=== PATIENT | female | born 1995 | race Caucasian/White ===

== ENCOUNTER 2016-09-13 06:25 | Day surgery (SDC) | payer BC, OTHER ==
[~2016-09-13 06:25] MED LIST: Lactated Ringers 1,000 ML IV SCH; Lidocaine 1%/Sod Bicarbonate in NS 8.4% 1 ML Syringe IV PRN; Sodium Chloride 0.9% 10 ML Syringe FLUSH PRN
[2016-09-13] MEDS ORDERED: Bupivacaine 0.5% 30 ML SDV ONE (06:33)
--- NOTE | 2016-09-13 07:14 | PCM.PREANE ---
Preanesthetic Assessment - Anesthesia/Transfusion/Family Hx Anesthesia History: No Prior Anesthesia (per patient) Family History of Anesthesia Reaction: No Transfusion History: No Prior Transfusion(s) - Review of Systems General: No Symptoms Pulmonary: No Symptoms Cardiovascular: No Symptoms Gastrointestinal: No symptoms Neurological: No Symptoms Other: Reports: Thyroid Problems - Physical Assessment NPO Status Date: 09/12/16 NPO Status Time: 22:30 Pulse: 81 O2 Sat by Pulse Oximetry: 98 Respiratory Rate: 16 Blood Pressure: 113/60 Temperature: 36.4 C Vital Signs: Last Vital Signs Temp 36.4 C 09/13/16 06:35 Pulse 81 09/13/16 06:35 Resp 16 09/13/16 06:35 BP 113/60 09/13/16 06:35 Pulse Ox 98 09/13/16 06:35 Height: 1.55 m Weight: 53.07 kg ASA Class: 2 Mental Status: Alert & Oriented x3 Airway Class: Mallampati = 1 Dentition: Reports: Normal Dentition Thyro-Mental Finger Breadths: 3 Mouth Opening Finger Breadths: 3 ROM/Head Extension: Full Lungs: Clear to auscultation, Normal respiratory effort Cardiovascular: Regular Rate, Regular Rhythm, No Murmurs - Lab Values: Laboratory Last Values WBC 6.63 K/mm3 (3.98-10.04) 09/11/16 15:45 RBC 4.79 M/mm3 (3.98-5.22) 09/11/16 15:45 Hgb 13.9 gm/L (11.2-15.7) 09/11/16 15:45 Hct 41.1 % (34.1-44.9) 09/11/16 15:45 MCV 85.8 fl (79.4-94.8) 09/11/16 15:45 MCH 29.0 pg (25.6-32.2) 09/11/16 15:45 MCHC 33.8 g/dl (32.2-35.5) 09/11/16 15:45 RDW Std Deviation 40.7 fL (36.4-46.3) 09/11/16 15:45 Plt Count 170 K/mm3 (182-369) L 09/11/16 15:45 MPV 11.8 fl (9.4-12.3) 09/11/16 15:45 Neut % (Auto) 62.1 % (34.0-71.1) 09/11/16 15:45 Lymph % (Auto) 25.3 % (19.3-51.7) 09/11/16 15:45 [place] % (Auto) 6.2 % (4.7-12.5) 09/11/16 15:45 Eos % (Auto) 5.6 (0.7-5.8) 09/11/16 15:45 Baso % (Auto) 0.6 % (0.1-1.2) 09/11/16 15:45 Neut # (Auto) 4.12 K/mm3 (1.56-6.13) 09/11/16 15:45 Lymph # (Auto) 1.68 K/mm3 (1.18-3.74) 09/11/16 15:45 [place] # (Auto) 0.41 K/mm3 (0.24-0.36) H 09/11/16 15:45 Eos # (Auto) 0.37 K/mm3 (0.04-0.36) H 09/11/16 15:45 Baso # (Auto) 0.04 K/mm3 (0.01-0.08) 09/11/16 15:45 Urine Color Yellow (Yellow) 09/11/16 15:45 Urine Appearance Clear (Clear) 09/11/16 15:45 Urine pH 7.0 (5.0-8.0) 09/11/16 15:45 Ur Specific [place] 1.020 (1.005-1.030) 09/11/16 15:45 Urine Protein Trace (Negative) H 09/11/16 15:45 Urine Glucose (UA) Negative (Negative) 09/11/16 15:45 Urine Ketones Negative (Negative) 09/11/16 15:45 Urine Occult Blood Negative (Negative) 09/11/16 15:45 Urine Nitrite Negative (Negative) 09/11/16 15:45 Urine Bilirubin Negative (Negative) 09/11/16 15:45 Urine Urobilinogen 1.0 (0.2-1.0) 09/11/16 15:45 Ur Leukocyte Esterase Negative (Negative) 09/11/16 15:45 Urine HCG, Qual Negative (NEGATIVE) 09/13/16 06:30 - Allergies Allergies/Adverse Reactions: Allergies Allergy/AdvReac Type Severity Reaction Status Date / Time peach Allergy Hives Verified 09/12/16 15:05 - Anesthesia Plan Pre-Op Medication Ordered: None - Acknowledgements Anesthesia Type Planned: General Anesthesia Pt an Appropriate Candidate for the Planned Anesthesia: Yes Alternatives and Risks of Anesthesia Discussed w Pt/Guardian: Yes Pt/Guardian Understands and Agrees with Anesthesia Plan: Yes PreAnesthesia Questionnaire - Past Health History Medical/Surgical History: Denies Medical/Surgical History HEENT History: Reports: Impaired Vision, Other (See Below) Other HEENT History: wears glasses Cardiovascular History: Reports: None Respiratory History: Reports: None Gastrointestinal History: Reports: None Genitourinary History: Reports: STD, Other (See Below) Other Genitourinary History: chlamydia, pelvic pain, dysmenorrhea, bacterial vaginosis, heavy menses 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 (See Below) Other OB/BYN History: elective Musculoskeletal History: Reports: None Neurological History: Reports: None Psychiatric History: Reports: None Endocrine/Metabolic History: Reports: Hypothyroidism, Vitamin D Deficiency, Other (See Below) Other Endocrine/Metabolic History: thyromegaly Hematologic History: Reports: None Immunologic History: Reports: None Oncologic (Cancer) History: Reports: None Dermatologic History: Reports: None - Past Surgical History Head Surgeries/Procedures: Reports: None Female Surgical History: Reports: D&C - SUBSTANCE USE Smoking Status *Q: Never Smoker Second Hand Smoke Exposure: No Days Per Week of Alcohol Use: 0 Recreational Drug Use History: No - HOME MEDS Home Medications: Home Meds Cholecalciferol (Vitamin D3) [Vitamin D3] 50,000 unit PO MO 09/12/16 [History] Levothyroxine [Synthroid] 88 mcg PO DAILY 09/12/16 [History] - CURRENT (IN HOUSE) MEDS Current Meds: Current Medications Lactated Ringer's (Ringers, Lactated) 1,000 mls @ 125 mls/hr IV ASDIRECTED [facility] Last Admin: 09/13/16 06:50 Dose: 125 mls/hr Lidocaine/Sodium Bicarbonate (Buffered Lidocaine 1% In Ns 8.4%) 0.25 ml IV ONETIME PRN PRN Reason: Prior to IV Start Last Admin: 09/13/16 06:50 Dose: 0.25 ml Sodium Chloride (Saline Flush) 10 ml FLUSH ASDIRECTED PRN PRN Reason: Keep Vein Open Discontinued Medications Bupivacaine HCl (Marcaine 0.5%) Confirm Administered Dose 30 ml .ROUTE .allGreenup-MED ONE Stop: 09/13/16 06:34
[2016-09-13] MEDS ORDERED: Scopolamine 1.5 MG Transdermal Patch TOP ONE (07:30)
[2016-09-13] MEDS ORDERED: Rocuronium 50 MG/5 ML Vial ONE (07:33)
[2016-09-13] MEDS ORDERED: Ondansetron 4 MG/2 ML SDV ONE (07:33)
[2016-09-13] MEDS ORDERED: Propofol 200 MG/20 ML SDV ONE (07:33)
[2016-09-13] MEDS ORDERED: Lidocaine 1% 4 ML ONE (07:34)
[2016-09-13] MEDS ORDERED: Midazolam 1 MG/ML 2 ML SDV ONE (07:34)
[2016-09-13] MEDS ORDERED: fentaNYL 250 MCG/5 ML SDV ONE (07:34)
[2016-09-13] MEDS ORDERED: ceFAZolin 1 GM Vial ONE (07:38)
[2016-09-13] MEDS ORDERED: Dexamethasone 4 MG/ML 5 ML MDV ONE (07:52)
[2016-09-13] MEDS ORDERED: diphenhydrAMINE 50 MG/ML SDV ONE (07:52)
[2016-09-13] MEDS ORDERED: Ondansetron 4 MG/2 ML SDV IVPUSH PRN (08:18)
[2016-09-13] MEDS ORDERED: Acetaminophen/oxyCODONE 325-5 MG Tab PO PRN (08:18)
[2016-09-13] MEDS ORDERED: Neostigmine Methylsulfate 1 MG/ML 5 ML Syringe ONE (08:20)
--- NOTE | 2016-09-13 08:25 | PCM.OPNOTE ---
- General Post-Op/Procedure Note Date of Surgery/Procedure: 09/13/16 Operative Procedure(s): Laparoscopy, biopsy and cautery of posterior cul-de-sac lesion Findings: Patient had mulberry spots right posterior cul-de-sac. Possibly consistent with endometriosis. These are biopsied and cauterized with unipolar cautery. Uterus tubes and ovaries otherwise unremarkable. Anterior and posterior cul-de-sac otherwise unremarkable. The appendix appeared noninflamed. Liver edge-right and left lobe unremarkable. Pre Op Diagnosis: 1. Chronic pelvic pain. 2. Dysmenorrhea. 3. Menorrhagia Post-Op Diagnosis: Same was suspected mild endometriosisstage I Anesthesia Technique: General ET tube Other Anesthesia Type: Marcaine 0.5% 3 mL at each port site Primary Surgeon: Brown Mahajan Secondary Surgeon: Román Hutchins Anesthesia Provider: Vicente Quinonez Pathology: Biopsy right posterior cul-de-sac Fluid Replacement, Intraop: 1,000 (Crystalloid) Output, Urine Amount: 100 EBL in mLs: 3 Drain/Tube Comments:: Indwelling bladder catheter during procedure only Condition: Good Free Text/Narrative:: Surgery duration: 20 minutes Palpitations: None Specimens: Biopsy right posterior cul-de-sac Procedure: The patient was taken to the operating room and placed in supine position on the operative table. She had sequential compression stockings in place for DVT prophylaxis and had been given 2 g of Ancef IV for infection prophylaxis. She was administered general endotracheal anesthesia. After administration of anesthesia the patient was placed in dorsal lithotomy position and prepped and draped in usual fashion. An indwelling bladder catheter was placed as was a uterine manipulator. It should be noted the uterus sounded to 8 cm and was noted to be anterior and mid position. Infraumbilical incision site and suprapubic site were then infiltrated with approximately 3-4 mL of Marcaine 0.5%. 5 mm incisions were made in these areas. Varies needle was placed in the infraumbilical incision site and pneumoperitoneum was established was in 2 L of CO2. The laparoscopic sleeve was then placed as was the scope. Under direct visualization the suprapubic site was developed with a 5 mm port. Pelvis was evaluated findings as above. Right posterior cul-de-sac and some small mulberry colored lesions present these were biopsied and then cauterized with unipolar cautery. Anatomy otherwise was unremarkable. After biopsy and cauterization was performed the pneumoperitoneum was reversed. The lower sleeve having been removed under direct visualization. The upper port was removed and the incisions were closed with single subcuticular interrupted suture of 3-0 Monocryl. The incisions were further approximated with Dermabond skin glue. The uterine manipulator and Dee catheter removed. Patient was returned to the supine position and awakened from general endotracheal anesthesia. She left the operating room in good condition.
[2016-09-13] MEDS ORDERED: Lactated Ringers 1,000 ML ONE (08:26)
[2016-09-13] MEDS ORDERED: Ketorolac 30 MG/ML SDV IVPUSH SCH (08:30)
[2016-09-13] MEDS ORDERED: Ketorolac 30 MG/ML SDV IVPUSH PRN (08:30)
--- NOTE | 2016-09-13 08:32 | PCM.POSTAN ---
POST ANESTHESIA ASSESSMENT - MENTAL STATUS Mental Status: somnolent - VITAL SIGNS Pulse Rate: 87 SaO2: 99 Resp Rate: 10 Blood Pressure: 108/65 Temperature: 37.0 C - RESPIRATORY Respiratory Status: respiratory rate WNL, airway patent, O2 saturation stable, supplemental oxygen - CARDIOVASCULAR CV Status: pulse rate WNL, blood pressure stable - GASTROINTESTINAL GI Status: no symptoms - PAIN Pain Score: 0 - POST OP HYDRATION Hydration Status: adequate & stable - OBSERVATIONS Free Text/Narrative:: no anesthesia complications noted
[2016-09-13] MEDS ORDERED: fentaNYL 100 MCG/2 ML SDV IVPUSH PRN (09:00)
[2016-09-13 11:18] VITALS: BP 122/68
== END 2016-09-13 11:30 | disposition home or self-care (01) ==
LOC: JD.SDS 06:25
PROVIDERS: ATTEND Obstetrics & Gynecology
DX: N94.89 Other specified conditions associated with female genital organs and menstrual cycle (principal); E03.9 Hypothyroidism, unspecified; E55.9 Vitamin D deficiency, unspecified; Z86.19 Personal history of other infectious and parasitic diseases; Z91.018 Allergy to other foods; Z91.09 Other allergy status, other than to drugs and biological substances; Z98.890 Other specified postprocedural states; Z79.899 Other long term (current) drug therapy
CPT/HCPCS: 36415; 49321; 81003; 81025; 85025; 88305; A9270; J0690; J1100; J1200; J1885; J2250; J2405; J2710; J3010; J7120; 00840; J2704

== ENCOUNTER 2017-05-24 11:37 | Emergency (ER) | payer OTHER ==
[2017-05-24 11:55] VITALS: BP 110/78
--- NOTE | 2017-05-24 12:34 | EDM.PDOC ---
<Nicholas Saucedo - Last Filed: 05/24/17 17:16> ED HPI GENERAL MEDICAL PROBLEM - General Chief Complaint: Lower Extremity Injury/Pain Stated Complaint: LT KNEE INJURY Time Seen by Provider: 05/24/17 12:04 - Related Data Allergies Allergy/AdvReac Type Severity Reaction Status Date / Time peach Allergy Hives Verified 09/12/16 15:05 Home Meds: Home Meds Cholecalciferol (Vitamin D3) [Vitamin D3] 50,000 unit PO MO 09/12/16 [History] Levothyroxine [Synthroid] 88 mcg PO DAILY 09/12/16 [History] Meloxicam 7.5 mg PO DAILY #20 tablet 05/24/17 [Rx] Review of Systems - Review of Systems Review Of Systems: See Below ED EXAM, GENERAL - Physical Exam Exam: See Below Course - Vital Signs Last Recorded V/S: Last Vital Signs Temp 37.2 C 05/24/17 11:52 Pulse 74 05/24/17 11:52 Resp 18 05/24/17 11:52 BP 110/78 05/24/17 11:52 Pulse Ox 100 05/24/17 11:52 - Re-Assessments/Exams Free Text/Narrative Re-Assessment/Exam: 05/24/17 14:19. Patient has stated that she needs a physician evaluation and agreement with treatment plan to obtain insurance coverage. I have visited with patient regarding her symptoms and findings today. I totally agree with history , evaluation, and discharge treatment plan as documented as DrRadha documented by Shantel PARK. Departure - Departure Disposition: Home, Self-Care 01 Clinical Impression: Knee pain, left - Discharge Information Prescriptions: Meloxicam 7.5 mg PO DAILY #20 tablet Instructions: Knee Pain, Adult Referrals: PCP,None [Primary Care Provider] - Forms: ED Department Discharge Additional Instructions: Meloxicam 1 tab daily. Use the crutches as tolerated. An outpatient order is in place read as physical therapy. Recommend [facility]. call [phone] to schedule with a provider there Follow-up with orthopedics if your symptoms have not improved much. Recommend Dr. Calvert. Call [phone] to schedule with him. Please return to the ER if your symptoms change or worsen. <Shantel Melo - Last Filed: 05/24/17 17:57> ED HPI GENERAL MEDICAL PROBLEM - General Source of Information: Reports: Patient History Limitations: Reports: No Limitations - History of Present Illness INITIAL COMMENTS - FREE TEXT/NARRATIVE: 22-year-old female presents for evaluation and treatment of left knee pain. 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 She is walking 6-10 miles per day. She states that since starting as a pit worker power shovel she has slowly developed left knee pain. Continues to the point where she cannot bear weight due to significant pain. With weight bearing pain is a 10 out of 10. At rest and with passive range of motion she is not expressing pain. No known trauma to the knee. No swelling, erythema, numbness or tingling to the leg. No pain to the hip or the ankle. No previous trauma to the knee. Denies any right knee pain. 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 (See Below) Other OB/BYN History: elective Musculoskeletal History: Reports: None Neurological History: Reports: None Psychiatric History: Reports: None Endocrine/Metabolic History: Reports: Hypothyroidism, Vitamin D Deficiency, Other (See Below) Other Endocrine/Metabolic History: thyromegaly Hematologic History: Reports: None Immunologic History: Reports: None Oncologic (Cancer) History: Reports: None Dermatologic History: Reports: None - Past Surgical History Female Surgical History: Reports: D&C Social & Family History - Tobacco Use Smoking Status *Q: Never Smoker Second Hand Smoke Exposure: No - Caffeine Use Caffeine Use: Reports: None - Alcohol Use Days Per Week of Alcohol Use: 0 - Recreational Drug Use Recreational Drug Use: No Review of Systems - Review of Systems Review Of Systems: See Below Musculoskeletal: Reports: Joint Pain (left ). Denies: Joint Swelling Skin: Denies: Erythema Neurological: Reports: Difficulty Walking. Denies: Numbness, Tingling ED EXAM, GENERAL - Physical Exam Exam: See Below Exam Limited By: No Limitations General Appearance: Alert, WD/WN, No Apparent Distress Respiratory/Chest: No Respiratory Distress Cardiovascular: Normal Peripheral Pulses Peripheral Pulses: 2+: Posterior Tibial (L), Posterior Tibial (R), Dorsalis Pedis (L), Dorsalis Pedis (R) Extremities: Normal Inspection, Normal Range of Motion, Non-Tender, Normal Capillary Refill, Other (Negative anterior drawer, posterior drawer. No pain with valgus or varus stress testing. No tenderness to palpation of the knee. No joint effusion. No erythema.). No: Joint Swelling Neurological: Alert, Oriented, Normal Cognition Psychiatric: Normal Affect, Normal Mood Skin Exam: Warm, Dry, Normal Color. No: Erythema Course - Radiology Interpretation Free Text/Narrative:: X-ray of the left knee impression per Dr. Rowland shows no abnormality. - Re-Assessments/Exams Free Text/Narrative Re-Assessment/Exam: 05/24/17 13:16 I reviewed the x-ray results with the patient. Likely pain from overuse. I will have her start physical therapy. Crutches as she cannot wear bear due to the pain. Will start her on meloxicam. Follow-up wi orthopedics if not better. Discharge instructions as documented. Departure - Departure Time of Disposition: 13:17 Condition: Fair
--- NOTE | 2017-05-24 13:02 | CR ---
Left knee: Four views of the left knee were obtained. Comparison: No previous study. Medial and lateral joint compartments are maintained in height. No joint effusion is seen. No fracture or other abnormality is seen. Impression: 1. No abnormality is appreciated on four-view left knee exam. Diagnostic code #1
== END 2017-05-24 14:00 | disposition home or self-care (01) ==
LOC: JD.ED 11:37
DX: M25.562 Pain in left knee (principal); E03.9 Hypothyroidism, unspecified; Z79.899 Other long term (current) drug therapy
CPT/HCPCS: 73564-26-LT; 73564-LT; 99283; 99284

== ENCOUNTER 2019-11-17 00:37 | Inpatient (IN) | payer BC ==
[2019-11-17] MEDS ORDERED: Ondansetron 4 MG/2 ML SDV IVPUSH PRN (07:28)
[2019-11-17] MEDS ORDERED: Nalbuphine 10 MG/ML Syringe IVPUSH PRN (07:28)
[2019-11-17] MEDS ORDERED: Sodium Chloride 0.9% 10 ML Syringe FLUSH PRN (07:28)
[2019-11-17] MEDS ORDERED: Lidocaine 1% 50 ML MDV INJECT ONE (07:28)
[2019-11-17] MEDS ORDERED: Oxytocin/Lactated Ringers 10 UNIT/1,000 ML BAG IV SCH ×2 (07:30)
[2019-11-17] MEDS: Lactated Ringers 1,000 ML IV SCH ×6 (09:36→22:50)
--- NOTE | 2019-11-17 10:40 | PCM.LDHP ---
L&D History of Present Illness - General Date of Service: 11/17/19 Admit Problem/Dx: Admission Diagnosis/Problem Admission Diagnosis/Problem 11/17/19 10:29 Chelo is a 24-year-old 3 para 0-0-2-0 white female who was admitted on the a.m. of 11/17/2019 at 40-3/7 weeks gestational age with an ED of 11/14/2019 for induction of labor. Source of Information: Patient History Limitations: Reports: No Limitations - History of Present Illness Introduction:: Chelo is a 24-year-old 3 para 0-0-2-0 white female who was admitted on the a.m. of 11/17/2019 at 40-3/7 weeks gestational age with an ED of 11/14/2019 for induction of labor. Weeks is 2+ centimeters, 70% effaced, soft, mid position, -3 station, cephalic presentation. She is to be started on Pitocin and when adequate descent of the head against the cervix has been accomplished we will proceed with AROM. The procedure, risk, benefits, alternatives of care including for allowing for natural onset of labor all discussed with patient and her significant other. She appears to understand and wishes to proceed. 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 Patient was initially seen at 7-0/7 weeks gestational age on 04/01/2019 at which time her ultrasound correlated within 3-4 days of her certain LMP. Patient had menarche at age 11. Cycles q. 28 days. Was not using any control at the time of conception. Patient had a spontaneous miscarriage on 02/19/2018 at 10- 2/7 weeks gestational age. She had an elective termination of on 03/19/2013. Patient's group B strep screen in is negative. She declined genetic testing. She declined flu vaccination. She has a history of depression. She desires an epidural in labor. She is hypothyroid and presently is on thyroid medications. Her thyroid function studies most recently have been within normal limits. She plans to breast-feed. Has been on Wellbutrin for depression treatment and was advised to wean off of this at 36 weeks. She also has thyromegaly. During the course of the she had yeast growth percentage but on most recent evaluation this had normalized. course. First evaluation was on 04/01/2019. She was seen on a regular basis throughout the . Fundal height growth was reasonably appropriate. Her blood pressure and vital signs were stable with each visit. Weight gain was from a pregravid weight 130.2 pounds to 158.8 pounds for a 28.8 pound increase. laboratory tests showed blood to be O+ with a negative antibody screen. First hemoglobin was 14.4 g/dL and platelets are 184,000. Her Pap smear showed negative findings. Rubella showed immunity. RPR was nonreactive. Urine culture was negative. Hepatitis B surface antigen and HIV assays were both negative. Chlamydia and gonorrhea tests were both negative. Her TSH on 03/18/2019 was elevated at 6.914 milliunits/mL. Patient is levothyroxine was increased to a final dose of 137 mcg/day. Her follow-up thyroid function tests were within normal limits thereafter. Second trimester hemoglobin was 11.1 g/dL. Patient was advised to start on iron supplementation. Her 1 hour GTT was normal at 85 mg/dL. Her platelets were normal at 176,000. Group B strep screen at the end of the was negative. Allergies: Peaches Medications: 1. Bupropion HCl ER (XL) 150 mg p.o. daily 2. Levothyroxine 137 mcg/day 3. vitamins. Past medical history: 1. Hypothyroidism 2. Thyromegaly 3. Endometriosisstage Imild per laparoscopic evaluation 4. Miscarriage [id number] trimester Past surgical history: Laparoscopy with diagnosis of stage I endometriosis. 2. D&C for elective termination of 2013 3. D&C for miscarriage 02/26/2018. Family history: Has a history of breast cancer in her 30s. Mother was also bipolar and had depression. She from the breast cancer. Her paternal grandfather had a stroke. Otherwise there are no abnormalities regarding blood clots, bleeding, related problems, anesthesia or medication problems. Social history: Patient is full. Marco is her ex- and the father of her baby and is supportive and present with her in labor. She lives in [place]. She does not use any significant muscle alcohol, drugs or tobacco. Physical exam: In general the patient is well-developed, well-nourished, pleasant female of stated age in no acute distress. Last evaluation clinic patient's blood pressure was 108/62. Weight was 158.8 with a pregravid weight of 130.2 pounds. Her fundal height was 38.5 cm consistent with dates. heart rate was 144. Cervix at that time was 2+ centimeters, 50% effaced, very soft, -2, mid position. Skin is warm dry without lesions. HEENT, neck and back within normal limits. Lungs are clear with good breath sounds in all lung alvarez. Cardiovascular exam shows regular and rhythm without murmurs. Breast exam is deferred at this time. Patient does plan to breast-feed. Abdomen is gravid with last fundal height in clinic at 38.5 cm. Baby in vertex presentation by Renan and by cervical exam today. Genital exam per digital evaluation as described in the HPI.. Extremities and neurological exam are grossly within normal limits. - Related Data Allergies/Adverse Reactions: Allergies Allergy/AdvReac Type Severity Reaction Status Date / Time peach Allergy Hives Verified 02/14/18 09:03 Home Medications: Home Meds Levothyroxine [Synthroid] 88 mcg PO DAILY 09/12/16 [History] Ondansetron [Zofran] 4 mg BUCCAL Q6H PRN #12 tab 02/14/18 [Rx] Pnv No.95/Ferrous Fum/Folic AC [ Vitamin Tablet] 1 tab PO DAILY 02/14/18 [History] Past Medical History - Past Health History Medical/Surgical History: Denies Medical/Surgical History HEENT History: Reports: Impaired Vision, Other (See Below) Other HEENT History: wears glasses Cardiovascular History: Reports: None Respiratory History: Reports: None Gastrointestinal History: Reports: Chronic Constipation, Gastritis Genitourinary History: Reports: Other (See Below) Other Genitourinary History: Dysmenorrhea, menorrhagia, spontaneous , e lective , bacterial vaginosis 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: Reports: , Spontaneous , Other (See Below) Other OB/BYN History: Dysmenorrhea, menorrhagia, spontaneous , elective Musculoskeletal History: Reports: None Neurological History: Reports: None Psychiatric History: Reports: Anxiety, Depression Endocrine/Metabolic History: Reports: Hypothyroidism Other Endocrine/Metabolic History: thyromegaly Hematologic History: Reports: None Immunologic History: Reports: None Oncologic (Cancer) History: Reports: None Dermatologic History: Reports: None - Infectious Disease History Infectious Disease History: Reports: Other (See Below) Other Infectious Disease History: Chlamydia - Past Surgical History Female Surgical History: Reports: D&C, Other (See Below) 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 with lysis of adhesions, Hx of D&C Social & Family History - Tobacco Use Smoking Status *Q: Never Smoker Second Hand Smoke Exposure: No - Caffeine Use Caffeine Use: Reports: None - Recreational Drug Use Recreational Drug Use: No - Living Situation & Occupation Living situation: Reports: Single Occupation: Employed H&P Review of Systems - Review of Systems: Review Of Systems: See Below L&D Exam - Exam Exam: See Below - Vital Signs Vital Signs: Last Vital Signs Temp 36.2 C 11/17/19 08:19 Pulse 83 11/17/19 08:19 Resp 14 11/17/19 08:19 BP 116/73 11/17/19 08:19 Pulse Ox 99 11/17/19 08:19 Weight: 73.119 kg - Patient Data Lab Results Last 24 hrs: Laboratory Results - last 24 hr 11/17/19 11/17/19 11/17/19 Range/Units 07:48 07:48 08:20 WBC 12.02 H (3.98-10.04) K/mm3 RBC 4.29 (3.98-5.22) M/mm3 Hgb 12.9 D (11.2-15.7) gm/dl Hct 38.6 (34.1-44.9) % MCV 90.0 (79.4-94.8) fl MCH 30.1 (25.6-32.2) pg MCHC 33.4 (32.2-35.5) g/dl RDW Std Deviation 48.1 H (36.4-46.3) fL Plt Count 148 L (182-369) K/mm3 MPV 11.8 (9.4-12.3) fl Neut % (Auto) 67.9 (34.0-71.1) % Lymph % (Auto) 21.8 (19.3-51.7) % [place] % (Auto) 7.3 (4.7-12.5) % Eos % (Auto) 1.9 (0.7-5.8) Baso % (Auto) 0.3 (0.1-1.2) % Neut # (Auto) 8.15 H (1.56-6.13) K/mm3 Lymph # (Auto) 2.62 (1.18-3.74) K/mm3 [place] # (Auto) 0.88 H (0.24-0.36) K/mm3 Eos # (Auto) 0.23 (0.04-0.36) K/mm3 Baso # (Auto) 0.04 (0.01-0.08) K/mm3 COVID-19 (DAREN) Negative (NEGATIVE) Blood Type O POSITIVE Gel Antibody Screen Negative Result Diagrams: 11/17/19 07:48 Problem List Initiated/Reviewed/Updated: Yes Orders Last 24hrs: Active Orders 24 hr Category Date Time Status Activity as Tolerated [RC] PFP Care 11/17/19 07:28 Active Communication Order [RC] ASDIRECTED Care 11/17/19 07:28 Active Heart Tones [RC] ASDIRECTED Care 11/17/19 07:28 Active Non Stress Test [RC] PER UNIT ROUTINE Care 11/17/19 07:28 Active Notify Provider [RC] PFP Care 11/17/19 07:28 Active Notify Provider [RC] PRN Care 11/17/19 07:28 Active Peripheral IV Care [RC] . DIRECTED Care 11/17/19 07:28 Active Vital Signs [RC] PER UNIT ROUTINE Care 11/17/19 07:28 Active RAPID PLASMA REAGIN,RPR [CHEM] Routine Lab 11/17/19 07:48 Received Lactated Ringers [Ringers, Lactated] 1,000 ml Med 11/17/19 07:30 Active IV ASDIRECTED Nalbuphine [Nubain] Med 11/17/19 07:28 Active 10 mg IVPUSH Q2H PRN Ondansetron [Zofran] Med 11/17/19 07:28 Active 4 mg IVPUSH Q4H PRN Oxytocin/Lactated Ringers [Pitocin in LR 10 Units/1,000 Med 11/17/19 07:30 Active ML] 10 unit in 1,000 ml IV .CONTINUOUS Oxytocin/Lactated Ringers [Pitocin in LR 10 Units/1,000 Med 11/17/19 07:30 Active ML] 10 unit in 1,000 ml IV TITRATE Sodium Chloride 0.9% [Saline Flush] Med 11/17/19 07:28 Active 10 ml FLUSH ASDIRECTED PRN Electronic Heart Tones Ext w TOCO [WOMSER] Oth 11/17/19 07:28 Ordered Routine Electronic Heart Tones Internal [WOMSER] Per Unit Oth 11/17/19 07:28 Ordered Routine Peripheral IV Insertion Adult [OM.PC] Routine Oth 11/17/19 07:28 Ordered Resuscitation Status Routine Resus Stat 11/17/19 07:28 Ordered Medication Orders Oxytocin/Lactated Ringer's (Pitocin In Lr 10 Units/1,000 Ml) 10 unit in 1,000 mls @ 12 mls/hr IV TITRATE YINA; Protocol Last Titration: 11/17/19 10:21 Dose: 4 munits/min, 24 mls/hr Documented by: Admin: 11/17/19 09:37 Dose: 2 munits/min, 12 mls/hr Documented by: AZUL Oxytocin/Lactated Ringer's (Pitocin In Lr 10 Units/1,000 Ml) 10 unit in 1,000 mls @ 100 mls/hr IV .CONTINUOUS YINA; Protocol Lactated Ringer's (Ringers, Lactated) 1,000 mls @ 100 mls/hr IV ASDIRECTED YINA Last Admin: 11/17/19 09:36 Dose: 100 mls/hr Documented by: AZUL Nalbuphine HCl (Nubain) 10 mg IVPUSH Q2H PRN PRN Reason: Pain Ondansetron HCl (Zofran) 4 mg IVPUSH Q4H PRN PRN Reason: Nausea/Vomiting Sodium Chloride (Saline Flush) 10 ml FLUSH ASDIRECTED PRN PRN Reason: Keep Vein Open Assessment/Plan Comment:: 1. 40-3/7-week intrauterine , admitted for induction of labor. 2. Group B strep negative 3. Patient plans to breast-feed 4. Tdap given on 10/15/2019. 5. She is rubella immune. 6. Patient desires epidural for labor analgesia. Plan: 1. Pitocin induction of labor followed by artificial rupture membranes augmentation. The procedure, risk, benefits, alternatives of care including allowing for natural onset of labor are all discussed in detail with patient. She appears understand, wishes to proceed. 2. Epidural as needed per patient desire. 3. Support breast-feeding decision 4. CBC and RPR upon admission per protocol for patient desiring neuro. 5. Routine labor care 6. Anticipate normal spontaneous vaginal delivery.
[2019-11-17] MEDS ORDERED: diphenhydrAMINE 50 MG/ML SDV IVPUSH PRN (11:13)
[2019-11-17] MEDS ORDERED: ePHEDrine 50 MG/ML SDV IVPUSH PRN (11:13)
[2019-11-17] MEDS ORDERED: fentaNYL 100 MCG/2 ML SDV EPIDUR PRN (11:13)
--- NOTE | 2019-11-17 11:17 | PCM.PREANE ---
Preanesthetic Assessment - Procedure Proposed Procedure: jayashree - Anesthesia/Transfusion/Family Hx Anesthesia History: Prior Anesthesia Without Reaction Family History of Anesthesia Reaction: No Transfusion History: No Prior Transfusion(s) - Review of Systems General: No Symptoms Pulmonary: No Symptoms Cardiovascular: No Symptoms Gastrointestinal: No Symptoms Neurological: No Symptoms Other: Reports: Thyroid Problems, Depression, Anxiety - Physical Assessment Vital Signs: Last Vital Signs Temp 97.1 F 11/17/19 08:19 Pulse 83 11/17/19 08:19 Resp 14 11/17/19 08:19 BP 116/73 11/17/19 08:19 Pulse Ox 99 11/17/19 08:19 Height: 5 ft 1 in Weight: 73.119 kg ASA Class: 2 Mental Status: Alert & Oriented x3 Airway Class: Mallampati = 1 Dentition: Reports: Normal Dentition Thyro-Mental Finger Breadths: 3 Mouth Opening Finger Breadths: 3 ROM/Head Extension: Full Lungs: Clear to Auscultation, Normal Respiratory Effort Cardiovascular: Regular Rate, Regular Rhythm - Lab Values: Laboratory Last Values WBC 12.02 K/mm3 (3.98-10.04) H 11/17/19 07:48 RBC 4.29 M/mm3 (3.98-5.22) 11/17/19 07:48 Hgb 12.9 gm/dl (11.2-15.7) D 11/17/19 07:48 Hct 38.6 % (34.1-44.9) 11/17/19 07:48 MCV 90.0 fl (79.4-94.8) 11/17/19 07:48 MCH 30.1 pg (25.6-32.2) 11/17/19 07:48 MCHC 33.4 g/dl (32.2-35.5) 11/17/19 07:48 RDW Std Deviation 48.1 fL (36.4-46.3) H 11/17/19 07:48 Plt Count 148 K/mm3 (182-369) L 11/17/19 07:48 MPV 11.8 fl (9.4-12.3) 11/17/19 07:48 Neut % (Auto) 67.9 % (34.0-71.1) 11/17/19 07:48 Lymph % (Auto) 21.8 % (19.3-51.7) 11/17/19 07:48 [place] % (Auto) 7.3 % (4.7-12.5) 11/17/19 07:48 Eos % (Auto) 1.9 (0.7-5.8) 11/17/19 07:48 Baso % (Auto) 0.3 % (0.1-1.2) 11/17/19 07:48 Neut # (Auto) 8.15 K/mm3 (1.56-6.13) H 11/17/19 07:48 Lymph # (Auto) 2.62 K/mm3 (1.18-3.74) 11/17/19 07:48 [place] # (Auto) 0.88 K/mm3 (0.24-0.36) H 11/17/19 07:48 Eos # (Auto) 0.23 K/mm3 (0.04-0.36) 11/17/19 07:48 Baso # (Auto) 0.04 K/mm3 (0.01-0.08) 11/17/19 07:48 COVID-19 (DAREN) Negative (NEGATIVE) 11/17/19 08:20 Blood Type O POSITIVE 11/17/19 07:48 Gel Antibody Screen Negative 11/17/19 07:48 - Allergies Allergies/Adverse Reactions: Allergies Allergy/AdvReac Type Severity Reaction Status Date / Time peach Allergy Hives Verified 02/14/18 09:03 - Blood Blood Available: No - Acknowledgements Anesthesia Type Planned: Epidural Pt an Appropriate Candidate for the Planned Anesthesia: Yes Alternatives and Risks of Anesthesia Discussed w Pt/Guardian: Yes Pt/Guardian Understands and Agrees with Anesthesia Plan: Yes PreAnesthesia Questionnaire - Past Health History Medical/Surgical History: Denies Medical/Surgical History HEENT History: Reports: Impaired Vision, Other (See Below) Other HEENT History: wears glasses Cardiovascular History: Reports: None Respiratory History: Reports: None Gastrointestinal History: Reports: Chronic Constipation, Gastritis, GERD (with preg) Genitourinary History: Reports: Other (See Below) Other Genitourinary History: Dysmenorrhea, menorrhagia, spontaneous , elective , bacterial vaginosis 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: , 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 , Other (See Below) Other OB/BYN History: Dysmenorrhea, menorrhagia, spontaneous , elective Musculoskeletal History: Reports: None Neurological History: Reports: None Psychiatric History: Reports: Anxiety, Depression Endocrine/Metabolic History: Reports: Hypothyroidism Other Endocrine/Metabolic History: thyromegaly Hematologic History: Reports: None Immunologic History: Reports: None Oncologic (Cancer) History: Reports: None Dermatologic History: Reports: None - Infectious Disease History Infectious Disease History: Reports: Other (See Below) Other Infectious Disease History: Chlamydia - Past Surgical History Female Surgical History: Reports: D&C, Other (See Below) 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 of adhesions, Hx of D&C - SUBSTANCE USE Smoking Status *Q: Never Smoker Tobacco Use Within Last Twelve Months: No Second Hand Smoke Exposure: No Days Per Week of Alcohol Use: 0 Recreational Drug Use History: No - HOME MEDS Home Medications: Home Meds Pnv No.95/Ferrous Fum/Folic AC [ Vitamin Tablet] 1 tab PO DAILY 02/14/18 [History] Levothyroxine [Synthroid] 137 mcg PO ACBREAKFAST 11/17/19 [History] buPROPion HCL [Wellbutrin Xl] 150 mg PO ASDIRECTED 11/17/19 [History] - CURRENT (IN HOUSE) MEDS Current Meds: Current Medications Oxytocin/Lactated Ringer's (Pitocin In Lr 10 Units/1,000 Ml) 10 unit in 1,000 mls @ 12 mls/hr IV TITRATE YINA; Protocol Last Titration: 11/17/19 11:00 Dose: 6 munits/min, 36 mls/hr Documented by: Oxytocin/Lactated Ringer's (Pitocin In Lr 10 Units/1,000 Ml) 10 unit in 1,000 mls @ 100 mls/hr IV .CONTINUOUS YINA; Protocol Lactated Ringer's (Ringers, Lactated) 1,000 mls @ 100 mls/hr IV ASDIRECTED YINA Last Admin: 11/17/19 09:36 Dose: 100 mls/hr Documented by: Nalbuphine HCl (Nubain) 10 mg IVPUSH Q2H PRN PRN Reason: Pain Ondansetron HCl (Zofran) 4 mg IVPUSH Q4H PRN PRN Reason: Nausea/Vomiting Sodium Chloride (Saline Flush) 10 ml FLUSH ASDIRECTED PRN PRN Reason: Keep Vein Open Discontinued Medications Lidocaine HCl (Xylocaine 1%) 50 ml INJECT ONETIME ONE Stop: 11/17/19 07:29
[2019-11-17] MEDS: Bupivacaine/fentaNYL/NS 100 ML Bag EPIDUR PRN ×2 (14:48→22:54)
[2019-11-18] MEDS ORDERED: Bupivacaine 0.25% 10 ML SDV ONE
--- NOTE | 2019-11-18 01:19 | PCM.SN.2 ---
- Free Text/Narrative Note: Delivery note: Chelo is a 24-year-old 3 para 0-0-2-0 white female who was admitted on the a.m. of 11/17/2019 at 40-3/7 weeks gestational age with an DE of 11/14/2019 for induction of labor. Started on Pitocin induction for approximately 3 to 4 hours which time she progressed to 2+ centimeters and brought the head down to -2 station. Head is well applied to the cervix and artificial rupture membranes was undertaken with resultant clear amniotic fluid. Chelo underwent an epidural for labor analgesia. From that point on patient's labor progressed steadily but slowly and at approximately 2350 the patient became completely dilated. She pushed for approximately 35 minutes and at 00 37 hours on 11/18/2019 patient delivered a viable, yeager, female with Apgars of 6 and 8, a weight of 3610 g (7 pounds 15.3 ounces) and a length of 20.7 inches in a direct occiput anterior position. The baby is placed on mom's abdomen. Nose and mouth were bulb suction. Baby was dried and warmed. Pitocin was increased to 500 cc/h to facilitate increase in uterine tone and decrease likelihood of uterine bleeding. The baby's name is Kamila Weems. The umbilical cord was allowed to pulsate for approximately 2 to 3 minutes after which time was clamped x2 and then by the baby's father Marco. Blood was obtained. The umbilical cord had 3 vessels within it. The placenta delivered in a Lugo presentation, it appeared intact and complete and was discarded per patient desire. Patient was noted to have advised sulcus vaginal laceration which extended down to but not including the external anal sphincter. Each of the internal vaginal lacerations were repaired individually with a short running suture of 3-0 Monocryl The remainder of the laceration was repaired in a routine episiotomy repair fashion. Patient tolerated this well. Epidural analgesia was used for perineal anesthesia. Estimated blood loss was 300 cc. Plans to breast-feed. Condition: Good.
[2019-11-18] MEDS ORDERED: buPROPion 150 MG Tab.ER PO ONE (01:30)
[2019-11-18] MEDS ORDERED: Witch Hazel Medicated Pads 40/Jar TOP PRN (01:54)
[2019-11-18] MEDS ORDERED: Acetaminophen 325 MG Tab PO PRN (01:54)
[2019-11-18] MEDS ORDERED: Benzocaine/Menthol 20%-0.5% Spray 56 GM Canister TOP PRN (01:54)
[2019-11-18] MEDS ORDERED: Docusate Sodium 100 MG Cap PO PRN (01:54)
[2019-11-18] MEDS: Ibuprofen 600 MG Tab PO PRN ×3 (03:08→16:37)
[2019-11-18] MEDS ORDERED: Levothyroxine 112 MCG Tab PO SCH (07:00)
[2019-11-18] MEDS ORDERED: Levothyroxine 25 MCG Tab PO SCH (07:00)
--- NOTE | 2019-11-18 08:06 | PCM48HPAN ---
Post Anesthesia Note - EVALUATION WITHIN 48HRS OF ANESTHETIC Vital Signs in Normal Range: Yes Patient Participated in Evaluation: Yes Respiratory Function Stable: Yes Airway Patent: Yes Cardiovascular Function Stable: Yes Hydration Status Stable: Yes Pain Control Satisfactory: Yes Nausea and Vomiting Control Satisfactory: Yes Mental Status Recovered: Yes Vital Signs: Last Vital Signs Temp 36.8 C 11/18/19 03:15 Pulse 113 H 11/18/19 03:15 Resp 16 11/18/19 03:15 BP 108/66 11/18/19 03:15 Pulse Ox 96 11/18/19 03:15
[2019-11-18] MEDS: Prenatal Multivitamin with Calcium/Folic Acid/Iron Tab PO SCH (09:37)
--- NOTE | 2019-11-18 10:50 | PCM.SN.2 ---
- Free Text/Narrative Note: note: Patient is doing well in the period. Minimal lochia, voiding well, ambulated without problems. Nursing without concerns. Patient is afebrile, vital signs are stable Abdomen is flat, soft, uterus is below the umbilicus and is firm and nontender. Legs are nontender. Assessment: recovery going well. Plan: Routine care. Patient be discharged home within the next 24-48 hours.
[2019-11-19] MEDS: Ibuprofen 600 MG Tab PO PRN (05:30)
[2019-11-19] MEDS ORDERED: buPROPion 150 MG Tab.ER PO SCH (09:00)
--- NOTE | 2019-11-19 09:47 | PCM.DCSUM1 ---
Discharge Summary - Hospital Course Free Text/Narrative:: Chelo is a 24-year-old 3 para 0-0-2-0 white female who was admitted on the a.m. of 11/17/2019 at 40-3/7 weeks gestational age with an ED of 11/14/2019 for induction of labor. Started on Pitocin induction for approximately 3 to 4 hours which time she progressed to 2+ centimeters and brought the head down to -2 station. Head is well applied to the cervix and artificial rupture membranes was undertaken with resultant clear amniotic fluid. Chelo underwent an epidural for labor analgesia. From that point on patient's labor progressed steadily but slowly and at approximately 2350 the patient became completely dilated. She pushed for approximately 35 minutes and at 00 37 hours on 11/18/2019 patient delivered a viable, yeager, female infant with Apgars of 6 and 8, a weight of 3610 g (7 pounds 15.3 ounces) and a length of 20.7 inches in a direct occiput anterior position. The baby is placed on mom's abdomen. Nose and mouth were bulb suction. Baby was dried and warmed. Pitocin was increased to 500 cc/h to facilitate increase in uterine tone and decrease likelihood of uterine bleeding. The baby's name is Kamila Weems. The umbilical cord was allowed to pulsate for approximately 2 to 3 minutes after which time was clamped x2 and then by the baby's father Marco. Blood was obtained. The umbilical cord had 3 vessels within it. The placenta delivered in a Lugo presentation, it appeared intact and complete and was discarded per patient desire. Patient was noted to have advised sulcus vaginal laceration which extended down to but not including the external anal sphincter. Each of the internal vaginal lacerations were repaired individually with a short running suture of 3-0 Monocryl The remainder of the laceration was repaired in a routine episiotomy repair fashion. Patient tolerated this well. Epidural analgesia was used for perineal anesthesia. Estimated blood loss was 300 cc. Plans to breast-feed. She is struggling somewhat with this. She has had consultation with secretary specialist. Patient is desiring discharge home. Condition: Good. Diagnosis: Stroke: No - Discharge Data Discharge Date: 11/19/19 Discharge Disposition: Home, Self-Care 01 Condition: Good - Referral to Home Health Primary Care Physician: Brown Mahajan MD - Patient Instructions Diet: Regular Diet as Tolerated (Nursing diet with increased calories and calcium as recommended.) Activity: As Tolerated (No intercourse or tampons until bleeding resolves.) Driving: May Drive Today Showering/Bathing: May Shower Showering/Bathing, Other: May take a bath Notify Provider of: Fever, Increased Pain, Swelling and Redness, Nausea and/or Vomiting - Discharge Plan Home Medications: Home Meds Pnv No.95/Ferrous Fum/Folic AC [ Vitamin Tablet] 1 tab PO DAILY 02/14/18 [History] Levothyroxine [Synthroid] 137 mcg PO ACBREAKFAST 11/17/19 [History] buPROPion HCL [Wellbutrin Xl] 150 mg PO ASDIRECTED 11/17/19 [History] Acetaminophen [Tylenol] 650 mg PO Q4H PRN tablet 11/19/19 [Rx] Ibuprofen [Motrin] 600 mg PO Q4H PRN tablet 11/19/19 [Rx] Referrals: Brown Mahajan MD [Primary Care Provider] - (Return to clinicDr. Mahajan or Rachel harriss2 weeks.) - Discharge Summary/Plan Comment DC Time >30 min.: No Discharge Summary/Plan Comment: Discharge instructions: 1. Discharge home 2. Diet, activity and follow-up discussed with patient. Recommend nursing diet with increased calories and calcium. 3. Precautions given concern increased pain, bleeding, temperature, signs/symptoms of DVT/PE. 4. Medications per home medication was printed, discussed with and given to the patient. 5. Return to clinic-Dr. Mahajan or Rachel Taylor-[facility]- [place] in 2 weeks. Diagnosis: Term -delivered Condition: Good - Patient Data Vitals - Most Recent: Last Vital Signs Temp 37.2 C 11/19/19 03:06 Pulse 106 H 11/19/19 03:06 Resp 15 11/19/19 03:06 BP 110/66 11/19/19 03:06 Pulse Ox 99 11/19/19 03:06 Weight - Most Recent: 73.119 kg Med Orders - Current: Current Medications Acetaminophen (Tylenol) 650 mg PO Q4H PRN PRN Reason: mild pain or fever Benzocaine/Menthol (Dermoplast Pain Relief Ava) 0 gm TOP ASDIRECTED PRN PRN Reason: Perineal Comfort Measure Last Admin: 11/18/19 03:07 Dose: 1 canister Documented by: Docusate Sodium (Colace) 100 mg PO BID PRN PRN Reason: Constipation Last Admin: 11/18/19 03:08 Dose: 100 mg Documented by: Ibuprofen (Motrin) 600 mg PO Q4H PRN PRN Reason: Mild pain or fever Last Admin: 11/19/19 05:30 Dose: 600 mg Documented by: Prenat Multivit/Sales [employer]/Iron/Folic Ac ( Plus Iron) 1 each PO DAILY YINA Last Admin: 11/18/19 09:37 Dose: 1 each Documented by: Fadumo Frye ([facility]) 1 pad TOP ASDIRECTED PRN PRN Reason: Perineal Comfort Measure Last Admin: 11/18/19 03:07 Dose: 1 container Documented by: Discontinued Medications Bupivacaine HCl (Sensorcaine-Mpf 0.25%) 10 ml .ROUTE .[facility] ONE Stop: 11/18/19 00:01 Bupropion HCl (Wellbutrin Xl) 150 mg PO Q48H YINA Diphenhydramine HCl (Benadryl) 25 mg IVPUSH Q6H PRN PRN Reason: pruritis Last Admin: 11/17/19 21:05 Dose: 25 mg Documented by: Ephedrine Sulfate (Ephedrine Sulfate) 5 mg IVPUSH ASDIRECTED PRN PRN Reason: Hypotension Fentanyl (Sublimaze) 100 mcg EPIDUR Q3H PRN PRN Reason: Pain Last Admin: 11/17/19 14:47 Dose: 100 mcg Documented by: Fentanyl/Bupivacaine HCl (Fentanyl/Bupivacaine/Ns 2 Mcg-0.125% 100 Ml) 100 ml EPIDUR ASDIRECTED PRN PRN Reason: Pain Last Admin: 11/17/19 22:54 Dose: 100 ml Documented by: Oxytocin/Lactated Ringer's (Pitocin In Lr 10 Units/1,000 Ml) 10 unit in 1,000 mls @ 12 mls/hr IV TITRATE YINA; Protocol Last Titration: 11/18/19 00:38 Dose: 166.5 munits/min, 999 mls/hr Documented by: Oxytocin/Lactated Ringer's (Pitocin In Lr 10 Units/1,000 Ml) 10 unit in 1,000 mls @ 100 mls/hr IV .CONTINUOUS YINA; Protocol Last Admin: 11/18/19 01:03 Dose: 999 mls/hr Documented by: Lactated Ringer's (Ringers, Lactated) 1,000 mls @ 100 mls/hr IV ASDIRECTED YINA Last Admin: 11/17/19 22:50 Dose: 100 mls/hr Documented by: Levothyroxine Sodium (Levothyroxine) 112 mcg PO DAILY@0700 YINA Levothyroxine Sodium (Levothyroxine) 25 mcg PO DAILY@0700 YINA Last Admin: 11/18/19 09:35 Dose: Not Given Documented by: Lidocaine HCl (Xylocaine 1%) 50 ml INJECT ONETIME ONE Stop: 11/17/19 07:29 Last Admin: 11/18/19 05:20 Dose: Not Given Documented by: Nalbuphine HCl (Nubain) 10 mg IVPUSH Q2H PRN PRN Reason: Pain Ondansetron HCl (Zofran) 4 mg IVPUSH Q4H PRN PRN Reason: Nausea/Vomiting Sodium Chloride (Saline Flush) 10 ml FLUSH ASDIRECTED PRN PRN Reason: Keep Vein Open
[2019-11-19 12:37] VITALS: BP 131/73; PULSE 113
[2019-11-19] MEDS: Prenatal Multivitamin with Calcium/Folic Acid/Iron Tab PO SCH (14:19)
== END 2019-11-19 11:00 | disposition home or self-care (01) | DRG 560 ==
LOC: JD.OB 00:37 → OBSVTOIN 11-18 00:37 → JD.OB 11-18 00:38
PROVIDERS: ADMIT Obstetrics & Gynecology; ATTEND Obstetrics & Gynecology
PROC: 10E0XZZ Delivery of Products of Conception, External Approach (ICD-10-PCS; principal; 2019-11-18)
PROC: 10907ZC Drainage of Amniotic Fluid, Therapeutic from Products of Conception, Via Natural or Artificial Opening (ICD-10-PCS; 2019-11-18)
PROC: 3E033VJ Introduction of Other Hormone into Peripheral Vein, Percutaneous Approach (ICD-10-PCS; 2019-11-18)
PROC: 3E0R3BZ Introduction of Anesthetic Agent into Spinal Canal, Percutaneous Approach (ICD-10-PCS; 2019-11-18)
PROC: 0HQ9XZZ Repair Perineum Skin, External Approach (ICD-10-PCS; 2019-11-18)
DX: O48.0 Post-term pregnancy (principal); Z3A.40 40 weeks gestation of pregnancy; Z37.0 Single live birth; E03.9 Hypothyroidism, unspecified; Z79.890 Hormone replacement therapy; O70.0 First degree perineal laceration during delivery; Z20.828 Contact with and (suspected) exposure to other viral communicable diseases
CPT/HCPCS: 36415; 51702; 59025; 59409; 85025; 86592; 86850; 86900; 86901; A9270-GY; J1200; J2590; J3010; J3490; J7120; U0002